=== PATIENT | male | born 1985 | race Two or more races ===

== ENCOUNTER 2024-02-02 14:12 | Inpatient (IN) | payer SELFPAY ==
[~2024-02-02] VITALS: Ht 170.2 cm; Wt 122.0 kg
[2024-02-02 16:13] LABS: Basophils # (auto) 0.1 10 ^3/uL (0-0.2); Basophils % (auto) 0.5 % (0.0-2.0); Eosinophils # (auto) 0 10 ^3/uL (0-0.8); Eosinophils % (auto) 0.2 % (0.0-7.0); Hematocrit 50.2 % (41.0-53.0); Hemoglobin 17.3 g/dL (13.5-17.5); Lymphocytes # (auto) 2.4 10 ^3/uL (0.4-5.4); Mean Corpuscular Hemoglobin 30.7 pg (28.0-32.0); Mean Corpuscular Hgb Conc. 34.4 g/dL (32.0-36.0); Mean Corpuscular Volume 89.1 fL (80.0-100.0); Monocytes % (auto) 6.5 % (0.0-12.0); Neutrophils # (auto) 12.6 10 ^3/uL (1.6-8.6); Neutrophils % (auto) 77.8 % (37.0-80.0); Nucleated Red Blood Cells % 0.1 %; Red Blood Cells 5.63 10^6/uL (4.5-5.90); Red Cell Distribution Width 13.1 % (11.8-14.3); White Blood Cell 16.2 10^3/uL (4.4-10.8)
[2024-02-02 16:40] LABS: Alanine Aminotransferase 27 U/L (7-40); Albumin 4.5 g/dL (3.2-4.8); Alkaline Phosphatase 63 U/L (46-116); Anion Gap 4 (5-15); Aspartate Aminotransferase 15 U/L (13-40); BUN/Creatinine Ratio 9.4 (10.0-20.0); Blood Urea Nitrogen 10 mg/dL (9-23); Calcium 10.2 mg/dL (8.7-10.4); Carbon Dioxide 30 mmol/L (20-30); Chloride 104 mmol/L (98-107); Glucose 99 mg/dL (74-106); Lipase 30 U/L (12-53); Potassium 4.2 mmol/L (3.5-5.1); Sodium 138 mmol/L (136-145)
[2024-02-02 16:41] LABS: Bilirubin, Total 0.9 mg/dL (0.2-1.0)
[2024-02-02] MEDS ORDERED: ACETAMINOPHEN 325 MG TAB PO PRN (17:15)
[2024-02-02] MEDS ORDERED: MORPHINE SULFATE INJ 2 MG/ml SYRG IV PRN (17:15)
[2024-02-02] MEDS ORDERED: ONDANSETRON HCL 4 MG/2 ML VIAL IV PRN (17:15)
[2024-02-02] MEDS ORDERED: DOCUSATE SOD 100 MG CAP PO PRN (17:15)
[2024-02-02] MEDS ORDERED: HYDROcodone-ACET 5/325MG TAB PO PRN (17:15)
[2024-02-02] MEDS: metroNIDAZOLE 500MG/100ML 100 ML IV ONE (17:24)
[2024-02-02] MEDS: fentaNYL CITRATE 100 MCG/2 ML VL IV ONE (17:24)
[2024-02-02] MEDS: CIPROFLOXACIN 400MG/200ML 200 ML IV ONE (17:25)
[2024-02-02] MEDS: metroNIDAZOLE 500MG/100ML 100 ML IV SCH (17:28)
[2024-02-02] MEDS: SODIUM CHLORIDE 0.9% 1,000 ML IV ONE (17:28)
[2024-02-02 17:29] VITALS: PULSE 94; RESP 18; O2SAT 96
[2024-02-02] MEDS: SODIUM CHLORIDE 0.9% 1,000 ML IV SCH (19:57)
[2024-02-02] MEDS: CIPROFLOXACIN 400MG/200ML 200 ML IV SCH (22:14)
[2024-02-02 22:15] VITALS: PULSE 94; RESP 18; O2SAT 96
[2024-02-02 23:30] VITALS: BP 123/68; PULSE 72; RESP 20; TEMP 97.3; O2SAT 96
[2024-02-03 02:00] VITALS: BP 122/74; PULSE 79; RESP 18; TEMP 98.1; O2SAT 95
[2024-02-03 05:00] VITALS: BP 117/63; PULSE 69; RESP 18; TEMP 98.4; O2SAT 97
[2024-02-03 06:39] LABS: Basophils # (auto) 0 10 ^3/uL (0-0.2); Basophils % (auto) 0.3 % (0.0-2.0); Eosinophils # (auto) 0.1 10 ^3/uL (0-0.8); Eosinophils % (auto) 0.5 % (0.0-7.0); Hematocrit 45.2 % (41.0-53.0); Hemoglobin 15.5 g/dL (13.5-17.5); Lymphocytes # (auto) 2.1 10 ^3/uL (0.4-5.4); Lymphocytes % (auto) 15.8 % (10.0-50.0); Mean Corpuscular Hemoglobin 30.9 pg (28.0-32.0); Mean Corpuscular Hgb Conc. 34.3 g/dL (32.0-36.0); Mean Corpuscular Volume 90.2 fL (80.0-100.0); Monocytes # (auto) 1.1 10 ^3/uL (0-1.3); Neutrophils # (auto) 10.1 10 ^3/uL (1.6-8.6); Neutrophils % (auto) 75.4 % (37.0-80.0); Nucleated Red Blood Cells % 0.1 %; Red Blood Cells 5.02 10^6/uL (4.5-5.90); Red Cell Distribution Width 13.1 % (11.8-14.3); White Blood Cell 13.4 10^3/uL (4.4-10.8)
[2024-02-03 06:49] LABS: Alanine Aminotransferase 20 U/L (7-40); Albumin 3.7 g/dL (3.2-4.8); Alkaline Phosphatase 60 U/L (46-116); Anion Gap 7 (5-15); Aspartate Aminotransferase 9 U/L (13-40); BUN/Creatinine Ratio 10.3 (10.0-20.0); Blood Urea Nitrogen 9 mg/dL (9-23); Calcium 8.9 mg/dL (8.5-10.1); Carbon Dioxide 25 mmol/L (20-30); Chloride 106 mmol/L (98-107); Glucose 97 mg/dL (74-106); LDL Cholesterol 71 mg/dL (< 100); Potassium 3.8 mmol/L (3.5-5.1); Sodium 138 mmol/L (136-145); Triglycerides 83 mg/dL (< 150)
[2024-02-03 06:50] LABS: Cholesterol 129 mg/dL (< 200); HDL Cholesterol 49 mg/dL (40-59); Total Protein 6.4 g/dL (5.7-8.2)
[2024-02-03] MEDS: metroNIDAZOLE 500MG/100ML 100 ML IV SCH (09:10)
[2024-02-03] MEDS: PANTOPRAZOLE 40 MG/10 ML VIAL INJ IV SCH (09:10)
[2024-02-03 17:00] VITALS: BP 141/77; PULSE 81; RESP 17; TEMP 98.7; O2SAT 95
[2024-02-03 21:00] VITALS: BP 123/72; PULSE 79; RESP 18; TEMP 98.7; O2SAT 96
[2024-02-04] MEDS: metroNIDAZOLE 500MG/100ML 100 ML IV SCH (03:46)
[2024-02-04 04:47] VITALS: BP 115/69; PULSE 79; RESP 18; TEMP 97.9; O2SAT 96
[2024-02-04] MEDS ORDERED: metroNIDAZOLE 500MG/100ML 100 ML IV SCH (06:00)
[2024-02-04 08:44] VITALS: BP 88/48; PULSE 77; RESP 17; TEMP 98; O2SAT 96
[2024-02-04 12:37] VITALS: BP 102/58; PULSE 73; RESP 16; TEMP 97.6; O2SAT 96
[2024-02-04 16:51] VITALS: BP 116/83; PULSE 83; RESP 18; TEMP 98.6; O2SAT 95
[2024-02-04 21:00] VITALS: BP 116/68; PULSE 70; RESP 18; TEMP 98.4; O2SAT 96
[2024-02-05 05:00] VITALS: BP 113/71; PULSE 62; RESP 18; TEMP 98; O2SAT 98
[2024-02-05 08:56] VITALS: BP 107/56; PULSE 67; RESP 20; TEMP 98.2; O2SAT 94
[2024-02-05] MEDS ORDERED: METR-344 PO (10:34)
[2024-02-05] MEDS ORDERED: LEVO500T91 PO (10:34)
[2024-02-05 13:00] VITALS: BP 109/59; PULSE 67; RESP 20; TEMP 98.3; O2SAT 96
[2024-02-05] MEDS ORDERED: OMNIPAQUE 12mg/ml 500ml ORAL SOLUTION PO ONE (15:25)
[2024-02-05 17:00] VITALS: BP 124/70; PULSE 66; RESP 20; TEMP 98; O2SAT 96
[2024-02-05 21:00] VITALS: BP 120/74; PULSE 72; RESP 20; TEMP 98.5; O2SAT 95
[2024-02-06] VITALS (8 sets, daily range): BP systolic 97–129; BP diastolic 54–86; PULSE 18–89; RESP 17–20; TEMP 97.7–99.3; O2SAT 94–97
[2024-02-06 11:22] LABS: Basophils # (auto) 0 10 ^3/uL (0-0.2); Basophils % (auto) 0.6 % (0.0-2.0); Eosinophils # (auto) 0.2 10 ^3/uL (0-0.8); Eosinophils % (auto) 2.3 % (0.0-7.0); Hemoglobin 16.6 g/dL (13.5-17.5); Lymphocytes # (auto) 2.2 10 ^3/uL (0.4-5.4); Lymphocytes % (auto) 29.6 % (10.0-50.0); Mean Corpuscular Hemoglobin 30.7 pg (28.0-32.0); Mean Corpuscular Hgb Conc. 34.7 g/dL (32.0-36.0); Mean Corpuscular Volume 88.5 fL (80.0-100.0); Monocytes # (auto) 0.5 10 ^3/uL (0-1.3); Monocytes % (auto) 7.1 % (0.0-12.0); Neutrophils # (auto) 4.6 10 ^3/uL (1.6-8.6); Neutrophils % (auto) 60.4 % (37.0-80.0); Nucleated Red Blood Cells % 0.1 %; Red Blood Cells 5.43 10^6/uL (4.5-5.90); Red Cell Distribution Width 12.7 % (11.8-14.3); White Blood Cell 7.6 10^3/uL (4.4-10.8)
[2024-02-06 12:15] LABS: Alanine Aminotransferase 19 U/L (7-40); Albumin 3.9 g/dL (3.2-4.8); Alkaline Phosphatase 54 U/L (46-116); Anion Gap 4 (5-15); Aspartate Aminotransferase 19 U/L (13-40); BUN/Creatinine Ratio 6.7 (10.0-20.0); Bilirubin, Total 0.5 mg/dL (0.2-1.0); Blood Urea Nitrogen 6 mg/dL (9-23); Calcium 9.9 mg/dL (8.7-10.4); Carbon Dioxide 26 mmol/L (20-30); Chloride 107 mmol/L (98-107); Glucose 100 mg/dL (74-106); Potassium 3.8 mmol/L (3.5-5.1); Sodium 137 mmol/L (136-145); Total Protein 7.2 g/dL (5.7-8.2)
[2024-02-07 01:00] VITALS: BP 108/67; PULSE 75; RESP 18; TEMP 97.8; O2SAT 96
[2024-02-07 05:00] VITALS: BP 110/73; PULSE 64; RESP 18; TEMP 97.7; O2SAT 95
[2024-02-07 08:00] VITALS: PULSE 66; RESP 18; O2SAT 94
[2024-02-07 09:00] VITALS: BP 110/68; PULSE 71; RESP 18; TEMP 98.2; O2SAT 98
[2024-02-07 13:00] VITALS: BP 99/52; PULSE 66; RESP 18; TEMP 98.4; O2SAT 94
[2024-02-07 17:00] VITALS: BP 106/67; PULSE 72; RESP 18; TEMP 98; O2SAT 96
== END 2024-02-07 16:55 | disposition home or self-care (01) | DRG 872 ==
LOC: ER 14:12 → OVERFLOW 17:09 → EAST 23:06
PROVIDERS: ADMIT Nurse Practitioner Family; ATTEND Family Medicine
DX: A41.9 Sepsis, unspecified organism (principal); K57.20 Diverticulitis of large intestine with perforation and abscess without bleeding; Z68.41 Body mass index [BMI] 40.0-44.9, adult; K76.0 Fatty (change of) liver, not elsewhere classified; K80.20 Calculus of gallbladder without cholecystitis without obstruction; E66.9 Obesity, unspecified; E86.0 Dehydration
CPT/HCPCS: 36415; 74176; 80053; 80061; 83605; 83690; 84484; 85025; 87040; G0378; J3490